=== PATIENT | male | born 1975 | race Caucasian/White ===

== ENCOUNTER 2022-01-19 06:57 | Day surgery (SDC) | payer OTHER ==
[~2022-01-19] VITALS: Ht 175.3 cm; Wt 85.9 kg
[2022-01-19 07:51] VITALS: BP 129/97; PULSE 71; TEMP 97.6
--- NOTE | 2022-01-19 08:32 | NUR ---
BLOOD PRESSURE RECHECKED 146/95.
[2022-01-19] MEDS ORDERED: NORCO 325 MG-51 TAB PO (10:14)
[2022-01-19 10:50] VITALS: BP 133/87; PULSE 70
--- NOTE | 2022-01-19 10:50 | NUR ---
Patient returns to room 8 per cart from PACU accompanied by Nika RN and is awake and alert. Abdominal dressing dry on umbilical incision. IV fluids infusing. Denies pain or nausea. Spouse in room. Call light in reach.
[2022-01-19 11:05] VITALS: BP 122/81; PULSE 68
--- NOTE | 2022-01-19 11:05 | NUR ---
Tolerates snack. Continues to deny pain or nausea.
[2022-01-19 11:08] VITALS: TEMP 97.9
[2022-01-19 11:20] VITALS: BP 124/79; PULSE 68
--- NOTE | 2022-01-19 11:20 | NUR ---
Drinking Pepsi. Talking with spouse.
[2022-01-19 11:35] VITALS: BP 125/84; PULSE 67
--- NOTE | 2022-01-19 11:35 | NUR ---
Continues to deny pain or nausea.
--- NOTE | 2022-01-19 11:50 | NUR ---
Assisted up to the bathroom and gait is steady. Voids and returns to room. IV discontinued and site is free of redness or swelling. Patient dresses self.
--- NOTE | 2022-01-19 12:20 | NUR ---
Patient is dressed. Given dismissal instructions and voices understanding of these.
--- NOTE | 2022-01-19 12:26 | NUR ---
Patient dismissed to home driven by spouse and taken to private vehicle per wheelchair and assisted into car with instructions in hand.
== END 2022-01-19 12:26 | disposition home or self-care (01) ==
LOC: SDCO 06:57
DX: K42.9 Umbilical hernia without obstruction or gangrene (principal); F17.210 Nicotine dependence, cigarettes, uncomplicated
CPT/HCPCS: C1781; J0330; J0690; J1100; J1170; J1885; J2405; J2704; J3010; J7120